=== PATIENT | female | born 1980 | race Caucasian/White ===

== ENCOUNTER 2018-11-07 18:08 | Emergency (ER) | payer BC ==
[~2018-11-07] VITALS: Ht 160 cm; Wt 86.2 kg
[~2018-11-07 18:08] MED LIST: MECL-124 PO; PROP1TAB77 PO
[2018-11-07] MEDS ORDERED: ONDANSETRON 4 MG (ZOFRAN) ORAL DISSOLVE TAB PO STA (18:26)
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
[2018-11-07] MEDS ORDERED: ACETAMINOPHEN 500 MG TAB (TYLENOL) PO ONE (18:30)
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
--- NOTE | 2018-11-07 18:41 | NUR ---
[employer] DEPT HERE TO TALK WITH PT.
--- NOTE | 2018-11-07 18:57 | NUR ---
REPORT AND CARE TURNED OVER TO KENA. POLICE CONTINUE TO TALK TO PT.
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
[2018-11-07] MEDS ORDERED: ONDA4TAB11 PO (19:50)
[2018-11-07 20:06] VITALS: BP 116/68
== END 2018-11-07 20:06 | disposition home or self-care (01) ==
LOC: EDUNIT# 18:08 → ER FS 18:10
DX: S06.0X0A Concussion without loss of consciousness, initial encounter (principal); H53.8 Other visual disturbances; T74.91XA Unspecified adult maltreatment, confirmed, initial encounter; R40.2142 Coma scale, eyes open, spontaneous, at arrival to emergency department; R40.2252 Coma scale, best verbal response, oriented, at arrival to emergency department; R40.2362 Coma scale, best motor response, obeys commands, at arrival to emergency department; Z88.1 Allergy status to other antibiotic agents; Z98.84 Bariatric surgery status; Y07.01 Husband, perpetrator of maltreatment and neglect; Y92.009 Unspecified place in unspecified non-institutional (private) residence as the place of occurrence of the external cause
CPT/HCPCS: 70450

== ENCOUNTER 2019-07-17 01:52 | Emergency (ER) | payer BC ==
[~2019-07-17] VITALS: Ht 172.7 cm; Wt 121.6 kg
[~2019-07-17 01:52] MED LIST changes: +ONDA4TAB11 PO
[2019-07-17] MEDS ORDERED: AZIT250T PO (02:21)
[2019-07-17] MEDS ORDERED: GUAI5SYR PO (02:21)
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
[2019-07-17 02:26] VITALS: BP 138/80
[2019-07-17] MEDS ORDERED: BENZONATATE 100 MG (TESSALON) CAPSULE PO SCH (02:30)
[2019-07-17] MEDS ORDERED: AZITHROMYCIN 250 MG TAB (ZITHROMAX) PO ONE (02:30)
== END 2019-07-17 02:26 | disposition home or self-care (01) ==
LOC: EDUNIT# 01:52 → ER FS 01:54
DX: J40 Bronchitis, not specified as acute or chronic (principal); K21.9 Gastro-esophageal reflux disease without esophagitis; E03.9 Hypothyroidism, unspecified; Z88.1 Allergy status to other antibiotic agents; Z98.84 Bariatric surgery status
CPT/HCPCS: 99283